=== PATIENT | male | born 1985 | race Two or more races ===

== ENCOUNTER → 2016-06-05 | Day surgery (SDC) | payer BC ==
[~2016-06-05] MED LIST: SARAFEM20 MG PO; VYVANSE20 MG PO
--- NOTE | ~2016-06-05 | ECT ---
Unit #: [id number] #: [id number] Patient: ESTEPHANIA ESPOSITO [id number] [address] [address] [id number] O MR#: [id number] NAME: ESTEPHANIA ESPOSITO ROOM: Age: 31 Sex: M Admission Date: 06/05/2016 : 1985 Discharge Date: Attending Physician: Alonso Posey M.D. Primary Care Physician: Primary Care Physician No ECT NOTE PROCEDURE ECT TREATMENT NUMBER One TREATMENT MODALITY Unilateral ECT ANESTHESIA Glycopyrrolate: 0.2 mg Brevital: 170 mg Succinylcholine: 120 mg TREATMENT PARAMETERS Charge: 60 millicoulombs Pulse Width: 1.0 milliseconds Frequency: 30 Hertz Duration: 1.25 seconds Current: 800 milliamps TREATMENT DELIVERED Energy: 9.9 joules Impedance: 213 ohms Charge: 60 millicoulombs SEIZURE MEASURES OMS: 43 seconds EE seconds COMPLICATIONS None. SUMMARY The patient had a good seizure with second stimulus and his dose titration measured at 60 millicoulombs. Will continue his ECT treatments on Sunday with a total stimulus dose of 240 millicoulombs. DIFFERENTIAL DIAGNOSES AXIS I: F33.2. AXIS II: Deferred. AXIS III: Nothing acute. Unit #: [id number] #: [id number] Patient: ESTEPHANIA ESPOSITO Dictated by... Pierce Orta/hortencia TD: 06/05/2016 12:40 JOB #: [id number] ECT NOTE Page 1 of 1 X Alonso Posey MD <ELECTRONICALLY SIGNED> 09/11/16 1207 X ECT
== END | disposition home or self-care (01) ==
LOC: CSUR 07:29
DX: F33.2 Major depressive disorder, recurrent severe without psychotic features (principal); F90.9 Attention-deficit hyperactivity disorder, unspecified type; Z79.899 Other long term (current) drug therapy; Z90.49 Acquired absence of other specified parts of digestive tract
CPT/HCPCS: 90870

== ENCOUNTER → 2016-06-07 | Day surgery (SDC) | payer BC ==
--- NOTE | ~2016-06-07 | ECT ---
Unit #: [id number] #: [id number] Patient: ESTEPHANIA ESPOSITO [id number] [place] [address] [id number] O MR#: [id number] NAME: ESTEPHANIA ESPOSITO ROOM: Age: 31 Sex: M Admission Date: 06/07/2016 : 1985 Discharge Date: Attending Physician: Alonso Posey M.D. Referring Physician: Alonso Posey M.D. Primary Care Physician: Primary Care Physician No ECT NOTE DATE OF TREATMENT 06/06/2016 TREATMENT NUMBER 2 TREATMENT MODALITY Unilateral ECT. ANESTHESIA Glycopyrrolate: 0.2 mg. Brevital: 170 mg. Succinylcholine: 120 mg. TREATMENT PARAMETERS Charge: 240 millicoulombs Pulse Width: 1.0 milliseconds Frequency: 30 Hertz Duration: 5 seconds Current: 800 milliamps TREATMENT DELIVERED Energy: 47.8 joules Impedance: 244 ohms Charge: 240 millicoulombs SEIZURE MEASURES OMS: 35 seconds EE seconds COMPLICATIONS None. SUMMARY The patient had a good seizure with OMS and EEG measures. A little bit of muscle soreness from his first ECT, but no other issues noted. I will continue his ECT treatments on Sunday. DIFFERENTIAL DIAGNOSES AXIS I: F33.2 AXIS II: Deferred. AXIS III: Nothing acute. Unit #: [id number] #: [id number] Patient: ESTEPHANIA ESPOSITO Dictated by... Pierce Orta/leslie TD: 06/07/2016 11:01 JOB #: [id number] ECT NOTE Page 1 of 1 X Alonso Posey MD <ELECTRONICALLY SIGNED> 09/11/16 1207 X ECT
== END | disposition home or self-care (01) ==
LOC: CSUR 07:45
DX: F33.2 Major depressive disorder, recurrent severe without psychotic features (principal); F41.9 Anxiety disorder, unspecified; Z79.899 Other long term (current) drug therapy; G47.30 Sleep apnea, unspecified; Z87.09 Personal history of other diseases of the respiratory system; Z87.898 Personal history of other specified conditions
CPT/HCPCS: 90870; J1885

== ENCOUNTER → 2016-06-09 | Day surgery (SDC) | payer BC ==
--- NOTE | ~2016-06-09 | ECT ---
Unit #: [id number] #: [id number] Patient: ESTEPHANIA ESPOSITO [id number] [address] [address] [id number] O MR#: [id number] NAME: ESTEPHANIA ESPOSITO ROOM: Age: 31 Sex: M Admission Date: 06/09/2016 : 1985 Discharge Date: Attending Physician: Alonso Posey M.D. Primary Care Physician: Primary Care Physician No ECT NOTE DATE OF TREATMENT 06/09/2016 TREATMENT NUMBER 3 TREATMENT MODALITY Unilateral ECT. ANESTHESIA Glycopyrrolate: 0.2 mg. Brevital: 160 mg. Succinylcholine: 120 mg. TREATMENT PARAMETERS Charge: 240 millicoulombs Pulse Width: 1.0 milliseconds Frequency: 30 Hertz Duration: 5 seconds Current: 800 milliamps TREATMENT DELIVERED Energy: 42.9 joules Impedance: 220 ohms Charge: 240 millicoulombs SEIZURE MEASURES OMS: 28 seconds EE seconds COMPLICATIONS None. SUMMARY The patient had a good seizure with both OMS and EEG measures. Depression seems to be pretty well maintained just after his first 3 ECTs. We are going to conclude his ECTs today. He is going to go back to work next week, and then he will just call me, and we will schedule for followup ECTs as needed. DIFFERENTIAL DIAGNOSES AXIS I: F33.2. AXIS II: Deferred. Unit #: [id number] #: [id number] Patient: ESTEPHANIA ESPOSITO AXIS III: Nothing acute. Dictated by... Alonso Posey M.D. ALEXUS/leslie TD: 06/09/2016 10:30 JOB #: [id number] ECT NOTE Page 1 of 1 X Alonso Posey MD <ELECTRONICALLY SIGNED> 09/11/16 1207 X ECT
== END | disposition home or self-care (01) ==
LOC: CSUR 07:11
DX: F33.2 Major depressive disorder, recurrent severe without psychotic features (principal); Z79.899 Other long term (current) drug therapy; Z90.49 Acquired absence of other specified parts of digestive tract; Z98.890 Other specified postprocedural states
CPT/HCPCS: 90870; J0330; J1885

== ENCOUNTER → 2016-07-03 | Day surgery (SDC) | payer BC ==
--- NOTE | ~2016-07-03 | ECT ---
Unit #: [id number] #: [id number] Patient: ESTEPHANIA ESPOSITO [id number] [address] [address] [id number] O MR#: [id number] NAME: ESTEPHANIA ESPOSITO ROOM: Age: 31 Sex: M Admission Date: 07/03/2016 : 1985 Discharge Date: Attending Physician: Alonso Posey M.D. Primary Care Physician: Primary Care Physician No ECT NOTE DATE OF TREATMENT 07/03/2016 TREATMENT NUMBER 1 TREATMENT MODALITY Unilateral ECT. ANESTHESIA Glycopyrrolate: 0.2 mg Brevital: 80 mg Succinylcholine: 100 mg TREATMENT PARAMETERS Charge: 240 millicoulombs Pulse Width: 1.0 milliseconds Frequency: 30 Hertz Duration: 5 seconds Current: 800 milliamps TREATMENT DELIVERED Energy: 39.8 joules Impedance: 202 ohms Charge: 240 millicoulombs SEIZURE MEASURES OMS: 41 seconds EE seconds COMPLICATIONS None. SUMMARY Patient had a good seizure with OMS and EEG measures. Depression seems to still be somewhat present from his initial 3 ECTs. We will him bring him back on Sunday and then consider what our interval can be considering his work schedule. DIFFERENTIAL DIAGNOSIS Bethel I: F33.2. [place]hel II: Deferred. [place]hel III: Nothing acute. Unit #: [id number] #: [id number] Patient: ESTEPHANIA ESPOSITO Dictated by... Pierce Orta/franco TD: 07/04/2016 04:44 JOB #: [id number] ECT NOTE Page 1 of 1 X Alonso Posey MD <ELECTRONICALLY SIGNED> 09/11/16 1207 X ECT
== END | disposition home or self-care (01) ==
LOC: CSUR 08:15
DX: F33.2 Major depressive disorder, recurrent severe without psychotic features (principal)
CPT/HCPCS: 90870; J0330; J1885

== ENCOUNTER → 2016-07-05 | Day surgery (SDC) | payer BC ==
--- NOTE | ~2016-07-05 | ECT ---
Unit #: [id number] #: [id number] Patient: ESTEPHANIA ESPOSITO [id number] [place] [address] [id number] O MR#: [id number] NAME: ESTEPHANIA ESPOSITO ROOM: Age: 31 Sex: M Admission Date: 07/05/2016 : 1985 Discharge Date: Attending Physician: Alonso Posey M.D. Primary Care Physician: Primary Care Physician No ECT NOTE DATE OF TREATMENT 07/05/2016 TREATMENT NUMBER 2 MODE Unilateral ECT. ANESTHESIA Glycopyrrolate: 0.2 mg. Brevital: 150 mg. Succinylcholine: 100 mg. TREATMENT PARAMETERS Charge: 240 millicoulombs Pulse Width: 1.0 milliseconds Frequency: 30 Hertz Duration: 5 seconds Current: 800 milliamps TREATMENT DELIVERED Energy: 42.5 joules Impedance: 222 ohms Charge: 240 millicoulombs SEIZURE MEASURES OMS: 34 seconds EE seconds COMPLICATIONS None. SUMMARY The patient had a good seizure with OMS and EEG measures. Depression seems to have done pretty well. We will give him one more ECT next Sunday, and he is doing pretty well at that point, we will terminate his ECT courses and just follow. DIFFERENTIAL DIAGNOSES AXIS I: F33.2 AXIS II: Deferred. Unit #: [id number] #: [id number] Patient: ESTEPHANIA ESPOSITO AXIS III: Nothing acute. Dictated by... Pierce Orta/leslie TD: 07/06/2016 12:57 JOB #: [id number] ECT NOTE Page 1 of 1 X Alonso Posey MD <ELECTRONICALLY SIGNED> 09/11/16 1207 X ECT
== END | disposition home or self-care (01) ==
LOC: CSUR 08:07
DX: F33.2 Major depressive disorder, recurrent severe without psychotic features (principal); F41.9 Anxiety disorder, unspecified; G47.33 Obstructive sleep apnea (adult) (pediatric); Z79.899 Other long term (current) drug therapy
CPT/HCPCS: 90870; J0330

== ENCOUNTER → 2016-07-17 | Day surgery (SDC) | payer BC ==
--- NOTE | ~2016-07-17 | ECT ---
Unit #: [id number] #: [id number] Patient: ESTEPHANIA ESPOSITO [id number] [place] [address] [id number] O MR#: [id number] NAME: ESTEPHANIA ESPOSITO ROOM: Age: 31 Sex: M Admission Date: 07/17/2016 : 1985 Discharge Date: Attending Physician: Alonso Posey M.D. Primary Care Physician: Primary Care Physician No ECT NOTE DATE OF TREATMENT 07/17/2016 TREATMENT NUMBER 4 TREATMENT MODALITY Unilateral ECT. ANESTHESIA Glycopyrrolate: 0.2 mg. Brevital: 120 mg. Succinylcholine: 100 mg. TREATMENT PARAMETERS Charge: 240 millicoulombs Pulse Width: 1.0 milliseconds Frequency: 30 Hertz Duration: 5 seconds Current: 800 milliamps TREATMENT DELIVERED Energy: 46.6 joules Impedance: 236 ohms Charge: 240 millicoulombs SEIZURE MEASURES OMS: 19 seconds EE seconds COMPLICATIONS None. SUMMARY The patient had a good seizure with OMS and EEG measures. Depression seems to be pretty well managed with his ECT even at this sporadic frequency. I will bring him back for another ECT. He says that he gets about 2 weeks out of his ECT treatments before he begins to feel depressed again. We will bring him back Sunday, and we will try to get him on a weekly schedule until we can get him (1) __ course of ECT. DIFFERENTIAL DIAGNOSES AXIS I: F33.2 Unit #: [id number] #: [id number] Patient: ESTEPHANIA ESPOSITO AXIS II: Deferred. AXIS III: Nothing acute. Dictated by... Alonso Posey M.D. ALEXUS/leslie TD: 07/18/2016 12:50 JOB #: [id number] ECT NOTE Page 1 of 1 X Alonso Posey MD <ELECTRONICALLY SIGNED> 09/11/16 1207 X ECT
== END | disposition home or self-care (01) ==
LOC: CSUR 07:59
DX: F33.2 Major depressive disorder, recurrent severe without psychotic features (principal); Z79.899 Other long term (current) drug therapy; Z90.49 Acquired absence of other specified parts of digestive tract; Z98.890 Other specified postprocedural states
CPT/HCPCS: 90870; J0330; J1885

== ENCOUNTER → 2016-07-19 | Day surgery (SDC) | payer BC ==
--- NOTE | ~2016-07-19 | ECT ---
Unit #: [id number] #: [id number] Patient: ESTEPHANIA ESPOSITO [id number] [address] [address] [id number] O MR#: [id number] NAME: ESTEPHANIA ESPOSITO ROOM: Age: 31 Sex: M Admission Date: 07/19/2016 : 1985 Discharge Date: Attending Physician: Alonso Posey M.D. Primary Care Physician: Primary Care Physician No ECT NOTE DATE OF TREATMENT 07/19/2016 TREATMENT NUMBER 5 TREATMENT MODALITY Unilateral ECT. ANESTHESIA Glycopyrrolate: 0.2 mg Brevital: 130 mg Succinylcholine: 100 mg TREATMENT PARAMETERS Charge: 240 millicoulombs Pulse Width: 1.0 milliseconds Frequency: 30 Hertz Duration: 5 seconds Current: 800 milliamps TREATMENT DELIVERED Energy: 44.1 joules Impedance: 226 ohms Charge: 240 millicoulombs SEIZURE MEASURES OMS: 32 seconds EE seconds COMPLICATIONS None. SUMMARY The patient seems to be doing pretty well with his ECT treatments thus far. I will start him on a maintenance schedule at ECT once a week for the next few weeks and watch and see how he does. He will come back next Sunday. DIFFERENTIAL DIAGNOSIS Gerber I: F33.2. Gerber II: Deferred. Gerber III: Nothing acute. Unit #: [id number] #: [id number] Patient: ESTEPHANIA ESPOSITO Dictated by... Pierce Orta/franco TD: 07/20/2016 00:01 JOB #: [id number] ECT NOTE Page 1 of 1 X Alonso Posey MD <ELECTRONICALLY SIGNED> 09/11/16 1207 X ECT
== END | disposition home or self-care (01) ==
LOC: CSUR 06:57
DX: F33.2 Major depressive disorder, recurrent severe without psychotic features (principal); F41.9 Anxiety disorder, unspecified; R76.11 Nonspecific reaction to tuberculin skin test without active tuberculosis; Z79.899 Other long term (current) drug therapy; Z90.49 Acquired absence of other specified parts of digestive tract; Z98.890 Other specified postprocedural states
CPT/HCPCS: 90870; J0330; J1885

== ENCOUNTER → 2016-07-26 | Day surgery (SDC) | payer BC ==
--- NOTE | ~2016-07-26 | ECT ---
Unit #: [id number] #: [id number] Patient: ESTEPHANIA ESPOSITO [id number] [place] [address] [id number] O MR#: [id number] NAME: ESTEPHANIA ESPOSITO ROOM: Age: 31 Sex: M Admission Date: 07/26/2016 : 1985 Discharge Date: Attending Physician: Alonso Posey M.D. Primary Care Physician: No Primary Care Physician ECT NOTE DATE OF TREATMENT 07/26/2016. TREATMENT NUMBER 8. MODE Unilateral ECT. ANESTHESIA Glycopyrrolate: 0.2 mg Brevital: 120 mg Succinylcholine: 100 mg TREATMENT PARAMETERS Charge: 216 millicoulombs Pulse width: 1.0 msec Frequency: 30 Hz Duration: 4.5 seconds Current: 800 milliamps TREATMENT DELIVERED Energy: 38.2 joules Impedance: 219 ohms Charge: 216 millicoulombs SEIZURE MEASURES OMS: 39 seconds EE seconds COMPLICATIONS None SUMMARY Patient had a good seizure with OMS and EEG measures. His depression, in spite of the sporadic ECT, has been doing pretty well. His mood does seem to be reaching the status of remission though he does lapse back into depressive symptoms after being off about a week or 2. We are going to bring him back at the end of August and see how he does over the next 3 or 4 weeks and complete his course of ECT at that point. DISCHARGE DIAGNOSIS AXIS I: F33.2 AXIS II: Deferred. Unit #: [id number] #: [id number] Patient: ESTEPHANIA ESPOSITO AXIS III: Nothing acute. Dictated by... Alonso Posey M.D. ALEXUS/lucho TD: 07/27/2016 06:51 JOB #: [id number] ECT NOTE Page 1 of 1 X Alonso Posey MD <ELECTRONICALLY SIGNED> 09/11/16 1207 X ECT
== END | disposition home or self-care (01) ==
LOC: CSUR 07:23
DX: F33.2 Major depressive disorder, recurrent severe without psychotic features (principal); F41.9 Anxiety disorder, unspecified; R76.11 Nonspecific reaction to tuberculin skin test without active tuberculosis; Z79.899 Other long term (current) drug therapy; Z90.49 Acquired absence of other specified parts of digestive tract; Z98.890 Other specified postprocedural states
CPT/HCPCS: 90870; J0330

== ENCOUNTER → 2016-08-09 | Day surgery (SDC) | payer BC ==
--- NOTE | ~2016-08-09 | ECT ---
Unit #: [id number] #: [id number] Patient: ESTEPHANIA ESPOSITO [id number] [place] [address] [id number] O MR#: [id number] NAME: ESTEPHANIA ESPOSITO ROOM: Age: 31 Sex: M Admission Date: 08/09/2016 : 1985 Discharge Date: Attending Physician: Alonso Posey M.D. Primary Care Physician: Primary Care Physician No ECT NOTE DATE OF TREATMENT 08/09/2016 TREATMENT NUMBER Nine TREATMENT MODALITY Unilateral ECT ANESTHESIA Glycopyrrolate: 0.2 mg Brevital: 120 mg Succinylcholine: 100 mg TREATMENT PARAMETERS Charge: 216 millicoulombs Pulse Width: 1.0 milliseconds Frequency: 30 Hertz Duration: 4.5 seconds Current: 800 milliamps TREATMENT DELIVERED Energy: 43.1 joules Impedance: 243 ohms Charge: 216 millicoulombs SEIZURE MEASURES OMS: 30 seconds EE seconds COMPLICATIONS None. SUMMARY The patient had a good seizure with OMS and EEG measures, depression seems to be pretty well maintained with his ECTs thus far, we will give him a further course of ECT later on in August and will just assess at the end of that period. DIFFERENTIAL DIAGNOSES AXIS I: F33.2. AXIS II: Deferred. AXIS III: Nothing acute. Unit #: [id number] #: [id number] Patient: ESTEPHANIA ESPOSITO AXIS IV: AXIS V: Dictated by... Pierce Orta/benjamín TD: 08/09/2016 11:52 JOB #: [id number] ECT NOTE Page 1 of 1 X Alonso Posey MD <ELECTRONICALLY SIGNED> 09/11/16 1207 X ECT
== END | disposition home or self-care (01) ==
LOC: CSUR 08-02 08:00
DX: F33.2 Major depressive disorder, recurrent severe without psychotic features (principal); F41.9 Anxiety disorder, unspecified; K21.9 Gastro-esophageal reflux disease without esophagitis; E11.42 Type 2 diabetes mellitus with diabetic polyneuropathy; Z79.4 Long term (current) use of insulin; H54.8 Legal blindness, as defined in USA; Z79.899 Other long term (current) drug therapy; J44.9 Chronic obstructive pulmonary disease, unspecified; G80.9 Cerebral palsy, unspecified; E78.5 Hyperlipidemia, unspecified; I25.10 Atherosclerotic heart disease of native coronary artery without angina pectoris; L30.9 Dermatitis, unspecified; K50.90 Crohn's disease, unspecified, without complications; Z87.442 Personal history of urinary calculi; Z88.0 Allergy status to penicillin; Z88.8 Allergy status to other drugs, medicaments and biological substances; Z98.890 Other specified postprocedural states
CPT/HCPCS: 90870; J0330; J1885

== ENCOUNTER → 2016-09-01 | Day surgery (SDC) | payer BC ==
--- NOTE | ~2016-09-01 | ECT ---
Unit #: [id number] #: [id number] Patient: ESTEPHANIA ESPOSITO [id number] [address] [address] [id number] O MR#: [id number] NAME: ESTEPHANIA ESPOSITO ROOM: Age: 31 Sex: M Admission Date: 09/01/2016 : 1985 Discharge Date: Attending Physician: Alonso Posey M.D. Referring Physician: Alonso Posey M.D. Primary Care Physician: Primary Care Physician No ECT NOTE DATE OF TREATMENT 09/01/2016 TREATMENT NUMBER 10 TREATMENT MODALITY Unilateral ECT. ANESTHESIA Glycopyrrolate: 0.2 mg. Brevital: 120 mg. Succinylcholine: 100 mg. TREATMENT PARAMETERS Charge: 576 millicoulombs Pulse Width: 1.0 milliseconds Frequency: 60 Hertz Duration: 6 seconds Current: 800 milliamps TREATMENT DELIVERED Energy: 95.6 joules Impedance: 202 ohms Charge: 576 millicoulombs SEIZURE MEASURES OMS: 40 seconds EE seconds COMPLICATIONS None. SUMMARY The patient had a very good seizure with both OMS and EEG measures. Depression seems to be showing some signs of benefits with his ECT even though we have been a bit sporadic in his treatments. We will bring him back next week, and we will complete his full course of ECT, and he will follow up on a p.r.n. basis. DIFFERENTIAL DIAGNOSES AXIS I: F33.2 AXIS II: Deferred. Unit #: [id number] #: [id number] Patient: ESTEPHANIA ESPOSITO AXIS III: Nothing acute. Dictated by... Pierce Orta/leslie TD: 09/02/2016 07:31 JOB #: [id number] ECT NOTE Page 1 of 1 X Alonso Posey MD <ELECTRONICALLY SIGNED> 09/11/16 1207 X ECT
== END | disposition home or self-care (01) ==
LOC: CSUR 08-30 08:00
DX: F33.2 Major depressive disorder, recurrent severe without psychotic features (principal); F41.9 Anxiety disorder, unspecified; G47.33 Obstructive sleep apnea (adult) (pediatric); R76.11 Nonspecific reaction to tuberculin skin test without active tuberculosis; Z79.899 Other long term (current) drug therapy; Z90.49 Acquired absence of other specified parts of digestive tract; Z98.890 Other specified postprocedural states
CPT/HCPCS: 90870; J0330; J1885

== ENCOUNTER → 2016-09-06 | Day surgery (SDC) | payer BC ==
--- NOTE | ~2016-09-06 | ECT ---
Unit #: [id number] #: [id number] Patient: ESTEPHANIA ESPOSITO [address] [place] [address] [id number] O MR#: [id number] NAME: ESTEPHANIA ESPOSITO ROOM: Age: 31 Sex: M Admission Date: 09/06/2016 : 1985 Discharge Date: Attending Physician: Alonso Posey M.D. Primary Care Physician: Primary Care Physician No ECT NOTE DATE OF TREATMENT 09/06/2016 TREATMENT NUMBER 11 TREATMENT MODALITY Unilateral ECT. ANESTHESIA Glycopyrrolate: 0.2 mg. Brevital: 120 mg. Succinylcholine: 100 mg. TREATMENT PARAMETERS Charge: 576 millicoulombs Pulse Width: 1.0 milliseconds Frequency: 60 Hertz Duration: 6 seconds Current: 800 milliamps TREATMENT DELIVERED Energy: 95.4 joules Impedance: 201 ohms Charge: 576 millicoulombs SEIZURE MEASURES OMS: 36 seconds EE seconds COMPLICATIONS None. SUMMARY The patient had a good seizure with OMS and EEG measures. Depression is pretty well controlled. We will give him 3 more ECTs to complete a full course of ECT, and then we will conclude at that point. DIFFERENTIAL DIAGNOSES AXIS I: F33.2 AXIS II: Deferred. AXIS III: Nothing acute. Unit #: [id number] #: [id number] Patient: ESTEPHANIA ESPOSITO Dictated by... Pierce Orta/leslie TD: 09/06/2016 08:58 JOB #: [id number] ECT NOTE Page 1 of 1 X Alonso Posey MD <ELECTRONICALLY SIGNED> 09/11/16 1207 X ECT
== END | disposition home or self-care (01) ==
LOC: CSUR 07:22
DX: F33.2 Major depressive disorder, recurrent severe without psychotic features (principal); G47.33 Obstructive sleep apnea (adult) (pediatric); Z79.899 Other long term (current) drug therapy; Z90.49 Acquired absence of other specified parts of digestive tract; Z98.890 Other specified postprocedural states
CPT/HCPCS: 90870; J0330; J1885

== ENCOUNTER → 2016-09-08 | Day surgery (SDC) | payer BC ==
--- NOTE | ~2016-09-08 | ECT ---
Unit #: [id number] #: [id number] Patient: ESTEPHANIA ESPOSITO [id number] [address] [address] [id number] O MR#: [id number] NAME: ESTEPHANIA ESPOSITO ROOM: Age: 31 Sex: M Admission Date: 09/08/2016 : 1985 Discharge Date: Attending Physician: Alonso Posey M.D. Primary Care Physician: Primary Care Physician No ECT NOTE DATE OF TREATMENT 09/08/2016 TREATMENT NUMBER 12 TREATMENT MODALITY Unilateral ECT. ANESTHESIA Glycopyrrolate: 0.2 mg. Brevital: 75 mg. Succinylcholine: 75 mg. TREATMENT PARAMETERS Charge: 576 millicoulombs Pulse Width: 1.0 milliseconds Frequency: 50 Hertz Duration: 6 seconds Current: 800 milliamps TREATMENT DELIVERED Energy: 101.4 joules Impedance: 211 ohms Charge: 576 millicoulombs SEIZURE MEASURES OMS: 38 seconds EE seconds COMPLICATIONS None. SUMMARY The patient had a good seizure with OMS and EEG measures. Depression has shown significant signs of improvement. We will just see how he does over the weekend and plan on concluding his ECT course next Sunday. DIFFERENTIAL DIAGNOSES AXIS I: F33.2 AXIS II: Deferred. AXIS III: Nothing acute. Unit #: [id number] #: [id number] Patient: ESTEPHANIA ESPOSITO Dictated by... Pierce Orta/leslie TD: 09/08/2016 12:42 JOB #: [id number] ECT NOTE Page 1 of 1 X Alonso Posey MD <ELECTRONICALLY SIGNED> 09/11/16 1207 X ECT
== END | disposition home or self-care (01) ==
LOC: CSUR 08:00
DX: F33.2 Major depressive disorder, recurrent severe without psychotic features (principal); K21.9 Gastro-esophageal reflux disease without esophagitis; Z79.899 Other long term (current) drug therapy; Z90.49 Acquired absence of other specified parts of digestive tract; Z98.890 Other specified postprocedural states
CPT/HCPCS: 90870; J0330; J1885

== ENCOUNTER → 2016-09-11 | Day surgery (SDC) | payer BC ==
--- NOTE | ~2016-09-11 | ECT ---
Unit #: [id number] #: [id number] Patient: ESTEPHANIA ESPOSITO [id number] [address] [address] [id number] O MR#: [id number] NAME: ESTEPHANIA ESPOSITO ROOM: Age: 31 Sex: M Admission Date: 09/11/2016 : 1985 Discharge Date: Attending Physician: Alonso Posey M.D. Primary Care Physician: Primary Care Physician No ECT NOTE DATE OF TREATMENT 09/11/2016 TREATMENT NUMBER 13 TREATMENT MODALITY Unilateral ECT. ANESTHESIA Glycopyrrolate: 0.2 mg. Brevital: 120 mg. Succinylcholine: 100 mg. TREATMENT PARAMETERS Charge: 576 millicoulombs Pulse Width: 1.0 milliseconds Frequency: 60 Hertz Duration: 6 seconds Current: 800 milliamps TREATMENT DELIVERED Energy: 106.9 joules Impedance: 223 ohms Charge: 576 millicoulombs SEIZURE MEASURES OMS: 32 seconds EE seconds COMPLICATIONS None. SUMMARY The patient has done well with the ECT treatments. Depression seems to be fully in remission at this point. We will give him one more ECT on Sunday to wrap up his treatment. DIFFERENTIAL DIAGNOSES AXIS I: F33.2 AXIS II: Deferred. AXIS III: Nothing acute. Unit #: [id number] #: [id number] Patient: ESTEPHANIA ESPOSITO Dictated by... Pierce Orta/leslie TD: 09/12/2016 07:14 JOB #: [id number] ECT NOTE Page 1 of 1 X Alonso Posey MD <ELECTRONICALLY SIGNED> 09/12/16 1748 X ECT
== END | disposition home or self-care (01) ==
LOC: CSUR 07:49
DX: F33.2 Major depressive disorder, recurrent severe without psychotic features (principal); F41.9 Anxiety disorder, unspecified; Z79.899 Other long term (current) drug therapy; Z90.49 Acquired absence of other specified parts of digestive tract; Z98.890 Other specified postprocedural states
CPT/HCPCS: 90870; J0330; J1885

== ENCOUNTER → 2016-09-13 | Day surgery (SDC) | payer BC ==
--- NOTE | ~2016-09-13 | ECT ---
Unit #: [id number] #: [id number] Patient: ESTEPHANIA ESPOSITO [address] [place] [address] [id number] O MR#: [id number] NAME: ESTEPHANIA ESPOSITO ROOM: Age: 31 Sex: M Admission Date: 09/13/2016 : 1985 Discharge Date: Attending Physician: Alonso Posey M.D. Primary Care Physician: Primary Care Physician No ECT NOTE DATE OF TREATMENT 09/13/2016 TREATMENT NUMBER 14 TREATMENT MODALITY Unilateral ECT ANESTHESIA Glycopyrrolate: 0.2 mg Brevital: 120 mg Succinylcholine: 100 mg TREATMENT PARAMETERS Charge: 576 millicoulombs Pulse Width: 1.0 milliseconds Frequency: 60 Hertz Duration: 6 seconds Current: 800 milliamps TREATMENT DELIVERED Energy: 105.1 joules Impedance: 222 ohms Charge: 576 millicoulombs SEIZURE MEASURES OMS: 30 seconds EE seconds COMPLICATIONS None. SUMMARY The patient had a good seizure with his OMS and EEG measures. Depression has reached remission. He seems to be doing pretty well and no symptoms of depression have been emerging during the intervals between his ECTs. I will conclude his treatments at this point. He has no observed memory problems noted from his ECT treatments and he will follow up on a p.r.n. basis. DIFFERENTIAL DIAGNOSES AXIS I: F33.2. Unit #: [id number] #: [id number] Patient: ESTEPHANIA ESPOSITO AXIS II: Deferred. AXIS III: Nothing acute. Dictated by... Alonso Posey M.D. ALEXUS/hugo TD: 09/13/2016 18:13 JOB #: [id number] ECT NOTE Page 1 of 1 X Alonso Posey MD <ELECTRONICALLY SIGNED> 09/25/16 1706 X ECT
== END | disposition home or self-care (01) ==
LOC: CSUR 08:00
DX: F33.2 Major depressive disorder, recurrent severe without psychotic features (principal); Z90.49 Acquired absence of other specified parts of digestive tract; Z79.899 Other long term (current) drug therapy; Z98.890 Other specified postprocedural states
CPT/HCPCS: 90870; J0330; J1885